=== PATIENT | male | born 1975 | race Caucasian/White ===

== ENCOUNTER 2016-09-01 16:48 | Emergency (ER) | payer SELFPAY | END 2016-09-01 19:10 | disposition home or self-care (01) | LOC: D.ER 16:48 | DX: S90.02XA Contusion of left ankle, initial encounter (principal); S80.02XA Contusion of left knee, initial encounter; S80.12XA Contusion of left lower leg, initial encounter; W17.2XXA Fall into hole, initial encounter ==

== ENCOUNTER 2016-10-01 04:49 | Emergency (ER) | payer SELFPAY | END 2016-10-01 05:25 | disposition home or self-care (01) | LOC: D.ER 04:49 | DX: M25.572 Pain in left ankle and joints of left foot (principal); W19.XXXA Unspecified fall, initial encounter; Y93.89 Activity, other specified; Y92.89 Other specified places as the place of occurrence of the external cause ==

== ENCOUNTER 2016-11-05 05:00 | Emergency (ER) | payer SELFPAY | END 2016-11-05 05:30 | disposition home or self-care (01) | LOC: D.ER 05:00 | DX: M25.571 Pain in right ankle and joints of right foot (principal); S99.911A Unspecified injury of right ankle, initial encounter; X58.XXXA Exposure to other specified factors, initial encounter; Y93.89 Activity, other specified; Y92.019 Unspecified place in single-family (private) house as the place of occurrence of the external cause; F17.200 Nicotine dependence, unspecified, uncomplicated ==